=== PATIENT | male | born 1985 | race Two or more races ===

== ENCOUNTER 2018-02-15 09:14 | Emergency (ER) | payer OTHER ==
[~2018-02-15] VITALS: Ht 175.3 cm; Wt 106.1 kg
[2018-02-16] MEDS ORDERED: PHENTERMINE H37.5 MG PO (07:44)
[2018-02-16] MEDS ORDERED: OSTERA TABLET1 EACH (07:44)
[2018-02-16] MEDS ORDERED: TOPAMAX25 MG PO (07:44)
== END 2018-02-15 13:04 | disposition home or self-care (01) ==
LOC: ER 09:14
DX: M25.562 Pain in left knee (principal)

== ENCOUNTER 2018-02-15 11:28 | Outpatient (CLI) | payer OTHER ==
[2018-02-16] MEDS ORDERED: OSTERA TABLET1 EACH (07:44)
[2018-02-16] MEDS ORDERED: TOPAMAX25 MG PO (07:44)
[2018-02-16] MEDS ORDERED: PHENTERMINE H37.5 MG PO (07:44)
== END 2018-02-15 11:37 | disposition home or self-care (01) ==
LOC: RAD 501 11:28
DX: M25.562 Pain in left knee (principal)

== ENCOUNTER 2018-02-20 06:06 | Day surgery (SDC) | payer OTHER ==
[~2018-02-20 06:06] MED LIST: OSTERA TABLET1 EACH; PHENTERMINE H37.5 MG PO; TOPAMAX25 MG PO
== END 2018-02-20 13:57 | disposition home or self-care (01) ==
LOC: CIR.AMB 06:06
DX: M23.342 Other meniscus derangements, anterior horn of lateral meniscus, left knee (principal); M23.352 Other meniscus derangements, posterior horn of lateral meniscus, left knee; M17.12 Unilateral primary osteoarthritis, left knee; M24.462 Recurrent dislocation, left knee; M12.262 Villonodular synovitis (pigmented), left knee; M22.42 Chondromalacia patellae, left knee